=== PATIENT | male | born 1955 | race Caucasian/White ===

== ENCOUNTER → 2019-01-19 18:35 | Emergency (ER) | payer BC, OTHER ==
--- NOTE | 2019-01-19 19:28 | ED ---
Lower Extremity - HPI Summary HPI Summary: Patient complains of left ankle pain after twisting it today. Denies any other pain, injury or symptoms. Patient ambulatory. Injury occurred at work. - History of Current Complaint Chief Complaint: EDExtremityLower Stated Complaint: ROLLED LT ANKLE PER PT Time Seen by Provider: 01/19/19 18:46 Hx Obtained From: Patient Mechanism Of Injury: Twisted Onset of Pain: Immediate Onset/Duration: Hours Severity Initially: Moderate Severity Currently: Moderate Pain Intensity: 6 Pain Scale Used: 0-10 Numeric Timing: Constant Location: Is Discrete @ Character Of Pain: Aching, Throbbing Associated Signs And Symptoms: Positive: Negative Aggravating Factor(s): Ambulation Alleviating Factor(s): Rest Able to Bear Weight: Yes - Allergies/Home Medications Allergies/Adverse Reactions: Allergies Allergy/AdvReac Type Severity Reaction Status Date / Time No Known Allergies Allergy Verified 01/19/19 18:38 Home Medications: Home Medications Levothyroxine TAB* [Synthroid TAB*] 175 mcg PO 0600 01/19/19 [History Confirmed 01/19/19] Tramadol HCl 50 mg PO BID 01/19/19 [History Confirmed 01/19/19] PMH/Surg Hx/FS Hx/Imm Hx Endocrine/Hematology History: Denies: Hx Anticoagulant Therapy Cardiovascular History: Denies: Hx Pacemaker/ICD History: Denies: Hx Dialysis Sensory History: Denies: Hx Legally Blind Opthamlomology History: Denies: Hx Eye Prosthesis EENT History: Denies: Hx Deafness Neurological History: Denies: Hx Dementia Psychiatric History: Denies: Hx Autism Infectious Disease History: No Infectious Disease History: Denies: Traveled Outside the [place] in Last 30 Days - Family History Known Family History: Positive: Non-Contributory - Social History Alcohol Use: Weekly Substance Use Type: Reports: None Smoking Status (MU): Never Smoked Tobacco Review of Systems Constitutional: Negative Eyes: Negative ENT: Negative Cardiovascular: Negative Respiratory: Negative Gastrointestinal: Negative Genitourinary: Negative Musculoskeletal: Other Skin: Negative Neurological: Negative Psychological: Normal All Other Systems Reviewed And Are Negative: Yes Physical Exam - Summary Physical Exam Summary: Very mild swelling to left ankle. No erythema, ecchymosis, deformity noted. PMS intact distally. No pain with palpation of left foot. Pain with palpation of left lateral ankle. Calf soft nontender. Triage Information Reviewed: Yes Vital Signs On Initial Exam: Initial Vitals Temp Pulse Resp BP Pulse Ox 98.2 F 72 16 133/92 96 01/19/19 18:37 01/19/19 18:37 01/19/19 18:37 01/19/19 18:37 01/19/19 18:37 Vital Signs Reviewed: Yes Appearance: Positive: Well-Appearing Skin: Positive: Warm Head/Face: Positive: Normal Head/Face Inspection Eyes: Positive: Normal Neck: Positive: Supple Respiratory/Lung Sounds: Positive: Clear to Auscultation Cardiovascular: Positive: Normal Abdomen Description: Positive: Nontender Musculoskeletal: Positive: Normal Neurological: Positive: Normal Psychiatric: Positive: Normal AVPU Assessment: Alert - Lakia Coma Scale Best Eye Response: 4 - Spontaneous Best Motor Response: 6 - Obeys Commands Best Verbal Response: 5 - Oriented Coma Scale Total: 15 Diagnostics - Vital Signs Vital Signs Temp Pulse Resp BP Pulse Ox 01/19/19 18:37 98.2 F 72 16 133/92 96 - Laboratory Lab Statement: Any lab studies that have been ordered have been reviewed, and results considered in the medical decision making process. Lower Extremity Course/Dx - Course Course Of Treatment: Patient complains of left ankle pain after twisting it today. Denies any other pain, injury or symptoms. Patient ambulatory. Injury occurred at work. Physical exam:Very mild swelling to left ankle. No erythema , ecchymosis, deformity noted. PMS intact distally. No pain with palpation of left foot. Pain with palpation of left lateral ankle. Calf soft nontender. Vital signs within normal limits. X-ray negative for fracture. Patient placed in an ankle gel splint and crutches - Diagnoses Provider Diagnoses: Ankle sprain Discharge - Sign-Out/Discharge Documenting (check all that apply): Patient Departure Patient Received Moderate/Deep Sedation with Procedure: No - Discharge Plan Condition: Stable Disposition: HOME Patient Education Materials: Ankle Sprain (ED), Ankle Stirrup Splint (ED) Forms: *Work Release Referrals: Cornelia Rice MD [Primary Care Provider] - Zackery Lazar MD [Medical Doctor] - Additional Instructions: Wear splint while ankle is healing. Alternate ibuprofen 600 mg with Tylenol 650 mg every 3 hours for pain. Ice, rest will also help. Follow-up with orthopedics Dr. Lazar for further evaluation if pain continues after 1 week. Return to the ED for any new or worsening symptoms. - Billing Disposition and Condition Condition: STABLE Disposition: Home
[2019-01-19 19:52] VITALS: BP 140/101
== END | disposition home or self-care (01) ==
LOC: ED 18:35
DX: S93.402A Sprain of unspecified ligament of left ankle, initial encounter (principal); X50.1XXA Overexertion from prolonged static or awkward postures, initial encounter; Y93.9 Activity, unspecified; Y99.0 Civilian activity done for income or pay
CPT/HCPCS: 99282